=== PATIENT | female | born 1940 | race Two or more races ===

== ENCOUNTER → 2024-03-12 | Emergency (ER) | payer OTHER ==
[~2024-03-12] VITALS: Ht 152.4 cm; Wt 51.7 kg
[~2024-03-12] MED LIST: ACETAMINOPHEN 500 MG GEL..CAP PO STA; ATENOLOL25 MG PO; AVAPRO75 MG PO; DEXAMETHASONE SODIUM PHOSPHATE 4 MG/ML VIAL IM STA; ENALAPRILAT DIHYDRATE 1.25 MG/ML VIAL IV STA; HYDRALAZINE HCL10 MG PO; LEVOTHYROXINE25 MCG PO; LevETIRAcetam 500 MG/5 ML VIAL IV STA; MEMANTINE HCL10 MG PO
[2024-03-12 16:28] LABS: HEMATOCRIT 31.9 % (36.0-45.00); HEMOGLOBIN 10.6 g/dL (12.0-15.00); MEAN CELL VOLUME 91.7 fL (80.00-100.00); MEAN CORPUSCULAR HEMOGLOBIN 30.5 pg (27.00-32.0); MEAN CORPUSCULAR HGB CONC 33.3 g/dl (32.0-36.0); PLATELET COUNT 260 K/uL (150-450); RED BLOOD COUNT 3.47 M/uL (4.00-6.00); RED CELL DISTRIBUTION WIDTH 14.4 % (11.5-14.5)
[2024-03-12 16:47] LABS: INR 1.07; PARTIAL THROMBOPLASTIN TIME 27.9 SECONDS (22.0-34.0); PROTHROMBIN TIME 11.6 SECONDS (9.0-11.5)
[2024-03-12 16:50] LABS: CALCIUM 8.6 mg/dL (8.5-10.1); CREATININE SERUM 0.94 mg/dL (0.55-1.02); GFR 56.59; POTASSIUM 3.62 mEq/L (3.5-5.1)
[2024-03-12 21:20] VITALS: BP 138/60; O2SAT 100
== END | disposition home or self-care (01) ==
LOC: ER 11:47
PROVIDERS: General Practice
DX: S42.392A Other fracture of shaft of left humerus, initial encounter for closed fracture (principal); W19.XXXA Unspecified fall, initial encounter; Y93.89 Activity, other specified; Y92.89 Other specified places as the place of occurrence of the external cause; Y99.8 Other external cause status